=== PATIENT | male | born 1985 | race African-American/Black ===

== ENCOUNTER 2017-04-24 11:06 | Emergency (ER) | payer MEDICAID, OTHER ==
[~2017-04-24] VITALS: Ht 182.9 cm; Wt 90.7 kg
[2017-04-24 11:21] VITALS: BP 135/96
[2017-04-24 13:37] VITALS: BP 118/71
--- NOTE | 2017-04-24 15:25 | Diagnostic Imaging Report ---
Clinical Indication:Pain Technique: 3 views of the right wrist Comparison: None Findings: The ulnar styloid is ununited, but both sides appear corticated. This probably represents either unfused ulnar styloid apophysis versus old ununited fracture. There is a well-corticated ossific density projected lateral to the waist of the scaphoid. On the lateral view, there is questionably an ossific density projected posterior to the proximal carpal row. 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 Correlate with clinical findings Findings discussed by phone with Dr. Babb in the emergency room
== END 2017-04-24 13:38 | disposition home or self-care (01) ==
LOC: EDBD 11:06 → EMR 11:23
DX: M25.531 Pain in right wrist (principal)
CPT/HCPCS: 99283